=== PATIENT | female | born 2005 | race Caucasian/White ===

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

== ENCOUNTER 2025-01-06 07:08 | Outpatient (RCR) | payer BC, SELFPAY ==
--- NOTE | 2024-12-30 10:10 | BH.SGPN.GN ---
Behaviors/Verbalizations/Mental Status: [] Eye contact is good. Motor activity is appropriate. Appearance is casual. Speech is Appropriate. Mood is anxious and content. Affect is congruent. Thoughts are linear and logical. No evidence of psychosis. Client Response/Progress/Benefit: [] Pt was an active participant during group discussions and group activities. This portion of group was very psychoeducation heavy and pt was attentive during psychoeducation. Engaged during activity in which they identified which type of foods (i.e. carbs, sugar, salt, fast food, caffeine, etc) they seek out when sad, tired, angry, stressed, anxious, etc. Pt was able to identify the impact that certain foods have on their mental health through group example which was beneficial. Benefited from increased awareness of the connection between nutrition and mental health. Will continue in IOP to prevent decompensation, decrease anxiety, improve healthy coping, and improve self-confidence. Narrative Note: []
[2025-01-06 00:31] VITALS: BP 142/98; PULSE 110
--- NOTE | 2025-01-06 09:02 | BH.SGPN.GN ---
Behaviors/Verbalizations/Mental Status: [] Pt alert and oriented, casually dressed and groomed. Eye contact good. Motor activity appropriate. Speech within normal limits. Affect congruent, mood dysthymic. Thoughts linear, logical, no signs of hallucinations or delusions. Reviewed pt?s symptom tracker, no risk for suicidal ideation, plan, or intent 01/06/25. Client Response/Progress/Benefit: []Pt was an active participant in group discussions. Attentive. Able to identify mental health wins including putting her clothes away and making progress on selling her old car. 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 Pt is feeling calm? this morning. Pt receptive to feedback from peers which pt reported was helpful. Progress noted. Benefited from group support, encouragement, and feedback. Will continue IOP tx to promote use of healthy coping skills, increase assertive communication, and improve mood stability. Narrative Note: []
--- NOTE | 2025-01-06 10:10 | BH.SGPN.GN ---
Behaviors/Verbalizations/Mental Status: []Client alert and oriented, casually dressed and groomed. Eye contact good. Motor activity appropriate. Speech within normal limits. Affect congruent, mood content. Thoughts linear, logical, no signs of hallucinations or delusions. Client Response/Progress/Benefit: [] Pt responded well to session AEB sharing and listening attentively to others. Group provided examples of benefits of having social support, including: validation, get perspective, and accountability. Pt also participated in group discussion regarding the barriers to accessing support identifying examples to include: negative thinking, lack of communication, and lack of trust. Personal example identified as lack of communication, toxic people, and negative thoughts. Pt participated in experiential activity illustrating the impact communication, boundaries, and patience play in creating healthy support systems. Pt appeared to benefit from increased knowledge of the benefits of social support and greater self-awareness. Pt to continue IOP to prevent decompensation, improve daily functioning, and increase self-confidence. ?? Narrative Note: []
--- NOTE | 2025-01-06 11:10 | BH.SGPN.GN ---
Behaviors/Verbalizations/Mental Status: Client alert and oriented, casually dressed and groomed. Eye contact good. Motor activity appropriate. Speech within normal limits. Affect congruent, mood euthymic. Thoughts linear, logical, no signs of hallucinations or delusions. Client Response/Progress/Benefit: Pt participated throughout AEB contributing to discussion, providing examples, and taking notes. Pt provided input during discussion on the types of support our supports can provide. Pt able to identify current support system and barriers that get in the way of using supports. Pt reported after identifying what type of supports pt receives, pt gained awareness that pt could benefit from more social and tangible support. Pt reported she realizes her weakest support comes from her home situation, recognizes important to build additional supports outside her home environment. Pt seemed to benefit from identifying the type of support pt needs to work on improving. Pt recommended to continue IOP tx to increase confidence, challenge negative thoughts, and prevent decompensation.
--- NOTE | 2025-01-08 10:15 | BH.SGPN.GN ---
Behaviors/Verbalizations/Mental Status: []Pt alert and oriented, neatly dressed and groomed. Eye contact good. Motor activity appropriate. Speech within normal limits. Affect congruent, mood anxious. Thoughts linear, logical, no signs of hallucinations or delusions. Client Response/Progress/Benefit: [] Pt was an active participate AEB listening attentively to others and contributing during group discussions, participating in activity, and taking notes throughout. Attentive and provided input as the group identified ways we can hurt others or sabotage self by not regulating our emotions. Participated with peers to identify ways emotions impact communication. Provided an example of shutting down when anxious and not knowing what to say. Participated during group activity. Pt benefited from session by gaining an increased understanding on the importance of managing emotions to improve daily functioning. Will continue IOP tx to improve self-confidence, reduce negative self-talk, and improve daily functioning. Narrative Note: []
--- NOTE | 2025-01-08 11:15 | BH.SGPN.GN ---
Behaviors/Verbalizations/Mental Status: [] Client alert and oriented, casually dressed and groomed. Eye contact good. Motor activity appropriate. Speech within normal limits. Affect congruent, mood anxious and dysthymic. Thoughts linear, logical, no signs of hallucinations or delusions. Client Response/Progress/Benefit: [] Client engaged in session AEB client listening attentively to peers and providing input. Attentive during psychoeducation on 4 zones of regulation. Pt able to identify feelings and behaviors for each zone. Pt identified coping skills one can use to support self in each zone. Pt stated belief that pt is in the blue zone today. Pt reports plan to spend time drawing today. Benefited from increased education on zones of regulation or stages of alertness for emotions and healthy coping skills to use for each zone. Pt will continue IOP tx to increase self-awareness, improve communication skills, and prevent decompensation. Narrative Note: []
--- NOTE | 2025-01-09 09:05 | BH.SGPN.GN ---
Behaviors/Verbalizations/Mental Status: [] Eye contact is good. Motor activity is appropriate. Appearance is casual. Speech is Appropriate. Mood is anxious. Affect is congruent. Thoughts are linear and logical. No evidence of psychosis. Reviewed daily check in sheet and no reports of suicidal ideations or intent. Client Response/Progress/Benefit: [] Pt participated at times during the group discussions. Attentive. Daily symptom tracker notes 2/5 for depressed mood and /5 for anxiety. Able to identify mental health wins and healthy habits. Utilized support to benefit mental health by making an effort to spend time with her niece. She identified psychosocial stressors and reports periods of ?being hyper?, restless, and anxious for unknown reasons. Group worked with patient to identify possible triggers to increase anxiety. Progress noted. Benefited from group support, encouragement, and feedback. Will continue in IOP to prevent decompensation, increase healthy coping, and improve functioning Narrative Note: []
--- NOTE | 2025-01-09 10:10 | BH.SGPN.GN ---
Behaviors/Verbalizations/Mental Status: []Pt alert and oriented, neatly dressed and groomed. Eye contact good. Motor activity appropriate. Speech within normal limits. Affect congruent, mood euthymic. Thoughts linear, logical, no signs of hallucinations or delusions. Client Response/Progress/Benefit: [] Pt was an active participant in group discussion and experiential activity. Attentive during psychoeducation on resilience and provided input throughout. Participated in interactive discussion with peers on the definition of resilience and where it comes from. Group identified that resiliency can be impacted by; past experiences, upbringing, and personality traits. Group also worked together to identify the benefits of being resilient and how it is related to mental health. Able to relate experiential activity of group juggle to topics of resilience. Worked with peers in small group in which they identified factors that contribute to resilience. Benefited from increased awareness of resilience and the factors that contribute to building resilience. Will continue in IOP tx to prevent decompensation, improve self-confidence, and gain healthy coping skills. ? Narrative Note: []
--- NOTE | 2025-01-09 11:10 | BH.SGPN.GN ---
Behaviors/Verbalizations/Mental Status: []Pt alert and oriented, neatly dressed and groomed. Eye contact good. Motor activity appropriate. Speech within normal limits. Affect congruent, mood hyper. Thoughts linear, logical, no signs of hallucinations or delusions. Client Response/Progress/Benefit: [] Pt responded well to session AEB completing the resilience worksheet provided. Pt actively participated in the discussion and worked cooperatively with group to identify strategies to enhance each of the components discussed. Pt reports belief they already use resilience trait of ?self-care, keeping things in perspective, and moving towards goals.? Pt discussed that they want to work on making more healthy connections and setting more boundaries with toxic people. Pt seemed to benefit from discussing strategies for improving personal resilience and identifying resilience traits Pt already possesses. Will continue IOP tx to prevent decompensation, improve daily functioning, and increase self-confidence. Narrative Note: []
--- NOTE | 2025-01-13 09:00 | BH.SGPN.GN ---
Behaviors/Verbalizations/Mental Status: [] Pt alert and oriented, casually dressed and groomed. Eye contact good. Motor activity appropriate. Speech within normal limits. Affect congruent, mood dysthymic and anxious. Thoughts linear, logical, no signs of hallucinations or delusions. Reviewed pt?s symptom tracker, no risk for suicidal ideation, plan, or intent 01/13/25. Client Response/Progress/Benefit: []Pt was an active participant in group discussions. Attentive. Able to identify mental health wins including maintaining her self-care routine as well as completing small tasks around the house. Pt's stressor today is failing one of her college courses. Reports trying not to let it get to her however and remind herself she can try again. Pt is feeling embarrassed? this morning. Pt receptive to feedback from peers which pt reported was helpful. Progress noted. Benefited from group support, encouragement, and feedback. Will continue IOP tx to promote use of healthy coping skills, increase self-confidence, and improve mood stability. Narrative Note: []
--- NOTE | 2025-01-13 11:10 | BH.SGPN.GN ---
Behaviors/Verbalizations/Mental Status: []Pt alert and oriented, casually dressed and groomed. Eye contact good. Motor activity appropriate. Speech within normal limits. Affect congruent, mood anxious. Thoughts linear, logical, no signs of hallucinations or delusions. Client Response/Progress/Benefit: []Pt responded well to session, engaged and contributing. Pt worked on mental health wellness garden picture and discussed things that contribute to mental wellness life. With peers, pt discussed things that would sabotage one's mental health wellness and added it to the garden metaphor. Pt identified things pt personally does to sabotage as people pleasing and having overly rigid boundaries. Pt attentive during psychoeducation on ways to reduce self-sabotage and pt selected building self-worth as the skill that could help pt reduce self-sabotaging behaviors. Pt appeared to benefit from learning skills and gaining awareness of self-sabotaging behaviors. Pt will continue IOP tx to increase distress tolerance skills, promote boundary setting, and combat negative thinking. Narrative Note: []
--- NOTE | 2025-01-13 15:26 | BH.MDN ---
Multi-Disciplinary Note Note 30-min Individual: Time Started:: 10:34 Date: 01/13/25 Purpose of session/treatment goals addressed:: Purpose of session was to address recent stressor impacting pt progress and resulting in heightened sx of depression and anxiety. Eye Contact:: Good Motor Activity:: Appropriate Appearance:: Casual Speech:: Appropriate Mood:: Anxious Affect:: Congruent Thoughts:: Linear, Logical and No evidence of hallucinations/delusions noted Staff Interventions:: thought challenging, motivational interviewing, psychoeducation on: (maintenance cycles), CBT techniques and strengths perspective Client Response:: Pt responded well to session, engaged throughout. Described struggling the past week with worsening sx of depression and anxiety after receiving news she failed a college class for the second time in a row. Noted feelings of guilt, shame, and embarrassment as procrastination, rather than the course material, was the primary factor in pt failing the course. Described finding the material ?easy? and uninteresting led to putting the assignments off or not completing them. Pt stated that after learning of her failure, she began to struggle with thoughts of ?I?ll never be successful? and ?I?m not good at this so why even bother?. These were then reinforced by her parent?s expressing frustration criticism with her performance. Noted that her parents have been overwhelming her with various different career paths she could take, resulting in pt feeling overwhelmed and shutting down. Noted that she spent much of her time this week reading and sleeping to avoid having to current stressors. Connected with psychoeducation on maintenance cycles and provided insight into the impact avoidance has had on reinforcing her mental health sx, as well as preventing pt from getting her needs met and developing greater independence. Explained that she has put off setting a boundary with her parents regarding her need for more privacy as well. Acknowledges that avoiding communication prevents her needs from being met. Shared that she knows she would like to do something with art and is leaning toward art school but would like to explore commission work first; however, has avoided looking further into this as discussed in previous session out of lack of motivation. Pt connected with discussion on behavioral activation and use of opposite action and positive or self-compassionate self-talk to break unhealthy maintenance cycles. Identified goals to use daily affirmations, look into commission work, and discuss one boundary topic with her parents. Risks/Concerns:: Daily symptom tracker notes no suicidal ideations, plan, or intent. Progress Toward Goals/Plan:: Some regression per pt self-report. Noted worsening mood in the last week due to failing a college class as well as chronic interpersonal in her home life. Self-reports isolating and avoiding as a result. Noted shutting down and avoiding is her usual response to stress. Able to recognize the unhelpful impacts this coping mechanism has had on reinforcing anxiety and preventing pt from building confidence and independence. Recommended continued IOP tx to improve self-efficacy and independence, improve mood stability, and prevent decompensation Time Stopped:: 12:05
--- NOTE | 2025-01-15 09:00 | BH.SGPN.GN ---
Behaviors/Verbalizations/Mental Status: [] Client alert and oriented, casual appearance. Eye contact good. Motor activity appropriate. Speech within normal limits. Affect congruent, mood anxious and euthymic. Thoughts linear, logical, no signs of hallucinations or delusions. Reviewed client's symptom tracker, no risk for suicidal ideation, plan, or intent. Client Response/Progress/Benefit: [] Client responded well to session AEB listening to others and sharing thoughts/feelings. Client reported mental health positive as having crucial conversation with her parents about asking them to knock on her door before entering. Client stated her parents did not respond well to her crucial conversation about wanting more privacy because they said until she pays rent or moves out they can do what they want. Client reported although the crucial conversation didn't go well she is proud of herself for standing up for herself. Client reported current stressor as parents not respecting her boundaries. Appeared to benefit from support from peers. Will continue IOP tx to increase confidence, continue setting boundaries, and prevent decompensation.
--- NOTE | 2025-01-15 10:15 | BH.SGPN.GN ---
Behaviors/Verbalizations/Mental Status: [] Eye contact is good. Motor activity is appropriate. Appearance is casual. Speech is Appropriate. Mood is anxious. Affect is congruent. Thoughts are linear and logical. No evidence of psychosis. Client Response/Progress/Benefit: [] Pt responded well to session AEB actively participating throughout group. Pt was attentive throughout group activity discussing famous individuals and how they overcame failure to be successful. Pt helped group define fear of failure as well as how it can impact mental health and relationships. Participated in experiential activity and worked with group members to problem solve. Appeared to benefit from increased knowledge of what causes fear of failure and how it impacts people. Will continue IOP tx to prevent decompensation,improve daily functioning and learn healthy coping skills. Narrative Note: []
--- NOTE | 2025-01-15 11:15 | BH.SGPN.GN ---
Behaviors/Verbalizations/Mental Status: []Pt alert and oriented, neatly dressed and groomed. Eye contact good. Motor activity appropriate. Speech within normal limits. Affect congruent, mood euthymic. Thoughts linear, logical, no signs of hallucinations or delusions. Client Response/Progress/Benefit: [] Pt responded well to session, engaged in the experiential activity and attentive throughout group processing. Interactive discussion with peers on what FOF has kept them from which included; being authentic and doing what she wants. Pt completed fear of failure worksheet and was able to identify thoughts and behaviors that reinforce personal fear of failure. Pt participated in small group discussion regarding strategies to overcome fear of failure. Identified struggling most with feeling like a burden and negative self-talk.? Pt will work on these by practicing ?thinking in the irene and challenging personalizing.? Appeared to benefit from increased knowledge of strategies to combat fear of failure and gaining self-awareness. Pt will continue IOP tx to promote mood stability, increase distress tolerance skills, and improve self-confidence. Narrative Note: []
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
--- NOTE | 2025-01-16 09:00 | BH.SGPN.GN ---
Behaviors/Verbalizations/Mental Status: [] Eye contact is good. Motor activity is appropriate. Appearance is casual. Speech is Appropriate. Mood is anxious. Affect is congruent. Thoughts are linear and logical. No evidence of psychosis. Reviewed daily check in sheet and no reports of suicidal ideations or intent. Client Response/Progress/Benefit: [] Pt participated at times during the group discussions. Attentive. Daily symptom tracker notes 5 for anxiety and /5 for depression. Able to identify mental health wins and healthy habits. She attempted to set boundaries with her parents last week and her perception at the time was that it was not helpful, however today she noticed that her parents had actually responded partially to her boundary request. ? I felt listened too?. She continues to struggle with finding her place in the world and is attending a career exploration class. 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 This has impacted her confidence and self-esteem. Progress is noted as she is beginning to be assertive in her communication. Benefited from group support, encouragement, and feedback. Will continue in IOP to prevent decompensation, increase healthy coping, and improve functioning. Narrative Note: []
--- NOTE | 2025-01-16 10:05 | BH.SGPN.GN ---
Behaviors/Verbalizations/Mental Status: [] Client alert and oriented, casually dressed and groomed. Eye contact good. Motor activity appropriate. Speech within normal limits. Affect congruent, mood euthymic. Thoughts linear, logical, no signs of hallucinations or delusions. Client Response/Progress/Benefit: [] Client responded well to session AEB contributing to discussion, taking notes, and listening attentively to others. Group discussed the benefits of managed anger and anger as a secondary emotion. Client participated in anger iceberg discussion. Group reported outward personal signs of anger as shutting down, isolating, and yelling. Group Identified underlying emotions that contribute to anger including family, daily stress, disappointment, and trauma. Appeared to benefit from increased knowledge of the underlying emotions that impact anger and increased self-awareness of the internal and external consequences of anger. Client will continue IOP program to increase functioning and minimize anxious thought processes. Narrative Note: []
--- NOTE | 2025-01-16 11:10 | BH.SGPN.GN ---
Behaviors/Verbalizations/Mental Status: [] client alert and oriented, neatly dressed and groomed. Eye contact good. Motor activity appropriate. Speech within normal limits. Affect congruent, mood euthymic. Thoughts linear, logical, no signs of hallucinations or delusions. Client Response/Progress/Benefit: [] Client was an engaged participant throughout group AEB client providing input throughout discussion. Client contributed to the continued discussion of how people express anger as well as the underlying emotions of anger. Client participated in group activity that highlighted strategies to cope with anger. Group brainstormed healthy coping skills to help prevent anger and cope with it in the moment which included: mindfulness, deep breathing, journaling, going outside, and music. Client identified skills to implement to help with anger as setting boundaries to prevent anger and deep breathing to help manage anger in the moment. Client appeared to benefit from brainstorming with the group potential strategies to manage anger in healthy ways. Recommended continued IOP to increase functioning and prevent decompensation. Narrative Note: []
--- NOTE | 2025-01-19 09:05 | BH.SGPN.GN ---
Behaviors/Verbalizations/Mental Status: [] Eye contact is good. Motor activity is appropriate. Appearance is casual. Speech is Appropriate. Mood is depressed and anxious. Affect is congruent. Thoughts are linear and logical. No evidence of psychosis. Reviewed daily check in sheet and no imminent reports of suicidal ideations or intent. Client Response/Progress/Benefit: [] Pt participated at times during the group discussions. Attentive. Very brief and superficial check-in today. I didn't feel as depressed this weekend. She described a couple of events which in the past would have caused depressive symptoms. Reframing her people-pleasing throughs and practicing boundary setting which she believes has positively impacted her independence as well as self-confidence. Challenging myths about self-care and not doing things. She is significant;y anxious about seeking a PT job. In the past she has struggled to follow instructions at previous jobs and is worried she will fail. Progress noted. Benefited from group support, encouragment, and feedback. Will continue in IOP to prevent decompensation, increase healthy coping, and improve functioning. Narrative Note: []
--- NOTE | 2025-01-19 10:00 | BH.SGPN.GN ---
Behaviors/Verbalizations/Mental Status: [] Client alert and oriented, casually dressed and groomed. Eye contact good. Motor activity appropriate. Speech within normal limits. Affect congruent, mood anxious, euthymic. Thoughts linear, logical, no signs of hallucinations or delusions. Client Response/Progress/Benefit: [] Pt engaged in session AEB client listening attentively to peers and providing input. Attentive and contributed to discussion as group worked on defining self-confidence and identifying benefits of self-confidence, as well as factors that can effect self-confidence levels. Pt was an active participant in activity in which the group read and processed each right on the Personal Bill of Rights worksheet. Pt identified the rights they struggle with believing as ?I have the right to change my mind? and ?I have the right to be angry at someone I love?. Benefited from increased education on self-confidence and what effects it. Pt will continue IOP tx to increase self-confidence, improve emotional regulation skills, and prevent decompensation. Narrative Note: []
--- NOTE | 2025-01-19 11:10 | BH.SGPN.GN ---
Behaviors/Verbalizations/Mental Status: [] Client alert and oriented, casually dressed and groomed. Eye contact good. Motor activity appropriate. Speech within normal limits. Affect congruent, mood euthymic. Thoughts linear, logical, no signs of hallucinations or delusions. Client Response/Progress/Benefit: [] Pt engaged in session AEB client listening attentively to peers and providing input. Attentive and contributed to discussion as group worked on identifying thought patterns and behaviors that negatively effect self-confidence. Pt identified that that people pleasing and poor boundaries. Engaged in confidence building activity and worked with the group to identify strategies for improving self-confidence. Pt identified plans to begin using daily morning affirmations as a means of improving own self-confidence. Benefited from increased education on self-confidence building skills. Pt will continue IOP tx to increase self-confidence, improve emotional regulation skills, and prevent decompensation. Narrative Note: []
--- NOTE | 2025-01-22 09:05 | BH.SGPN.GN ---
Behaviors/Verbalizations/Mental Status: [] Eye contact is good. Motor activity is appropriate. Appearance is casual. Speech is Appropriate. Mood is anxious. Affect is congruent. Thoughts are linear and logical. No evidence of psychosis. Reviewed daily check in sheet and no reports of suicidal ideations or intent. Client Response/Progress/Benefit: [] Pt was an active participant in group discussions. Attentive. Daily symptom tracker notes 11/12 for anxiety. Pt talked at length regarding stressors at home with her parents.???Yesterday was rough? Elaborated on how these stressors are impacting her mental health. Tearful at times. She reports feeling like a ? therapist? for her parents. Concerned for the future of her family. Limited progress noted. Benefited from group support, encouragement, and feedback. Will continue in IOP to prevent decompensation, increase healthy coping, and provide support. Narrative Note: []
--- NOTE | 2025-01-22 10:10 | BH.SGPN.GN ---
Behaviors/Verbalizations/Mental Status: [] Client alert and oriented, casually dressed and groomed. Eye contact good. Motor activity appropriate. Speech within normal limits. Affect congruent, mood euthymic. Thoughts linear, logical, no signs of hallucinations or delusions Client Response/Progress/Benefit: [] Client was an active participant, AEB taking notes and providing input in group discussions and activities. Attentive during psychoeducation. Client engaged during interactive discussion in which the group defined self-care and discussed its benefits. Group discussed barriers to engaging in self-care. Client identified personal barrier of over using some self care and ignoring it in other areas. Client participated in small groups where they worked to identify common self-care ?myths?. Benefited from increased awareness of self-care, its benefits, and the consequences of not utilizing self-care strategies. Will continue IOP tx to prevent decompensation and increase overall functioning. Narrative Note: []
--- NOTE | 2025-01-22 11:10 | BH.SGPN.GN ---
Behaviors/Verbalizations/Mental Status: [] Client alert and oriented, neatly dressed and groomed. Eye contact good. Motor activity appropriate. Speech within normal limits. Affect congruent, mood euthymic. Thoughts linear, logical, no signs of hallucinations or delusions. Client Response/Progress/Benefit: []Client engaged participant AEB completing self-assessment worksheet and providing input throughout discussion. Client completed worksheet identifying current self-care practices and what self-care activities client wants to start using. Client selected professional self-care to begin practicing more consistently. Client plans to do this by setting more boundaries with her dad since he is also her boss. Appeared to benefit from completing the self-care evaluation and gaining insights into current self-care practices, as well as identifying areas in which client would like to improve upon. Client will continue IOP tx to prevent decompensation, increase emotional regulation skills, and gain healthier thought patterns. Narrative Note: []
--- NOTE | 2025-01-23 09:00 | BH.SGPN.GN ---
Behaviors/Verbalizations/Mental Status: [] Eye contact is good. Motor activity is appropriate. Appearance is casual. Speech is Appropriate. Mood is depressed. Affect is congruent. Thoughts are linear and logical. No evidence of psychosis. Reviewed daily check in sheet and no reports of suicidal ideations or intent. Client Response/Progress/Benefit: [] Pt was an active participant in group discussion. Attentive. She talked at length regarding continued stressors at home and how they impact her mental health. Tearful at times. ? I feel like I have to choose sides?. She is working hard to utilize coping strategies, set boundaries, and communicate assertively with family. She also has insight that her parents problems are not her responsibility to solve. Despite the external stressors she is able to incorporate healthy coping. Progress noted. Beneifted from group support, encouragement, and feedback. She is set to discharge successfully from [facility] today. Narrative Note: []
--- NOTE | 2025-01-23 09:00 | BH.SGPN.GN ---
Behaviors/Verbalizations/Mental Status: [] Eye contact is good. Motor activity is appropriate. Appearance is casual. Speech is Appropriate. Mood is depressed. Affect is congruent. Thoughts are linear and logical. No evidence of psychosis. Reviewed daily check in sheet and no reports of suicidal ideations or intent. Client Response/Progress/Benefit: [] Pt was an active participant in group discussion. Attentive. She talked at length regarding continued stressors at home and how they impact her mental health. Tearful at times. ? I feel like I have to choose sides?. She is working hard to utilize coping strategies, set boundaries, and communicate assertively with family. She also has insight that her parents problems are not her responsibility to solve. Despite the external stressors she is able to incorporate healthy coping. Progress noted. Beneifted from group support, encouragement, and feedback. She is set to discharge successfully from [facility] today. Narrative Note: []
--- NOTE | 2025-01-23 10:15 | BH.SGPN.GN ---
Behaviors/Verbalizations/Mental Status: [] Client alert and oriented, casually dressed and groomed. Eye contact good. Motor activity appropriate. Speech within normal limits. Affect congruent, mood euthymic. Thoughts linear, logical, no signs of hallucinations or delusions. Client Response/Progress/Benefit: [] Pt engaged in session AEB client listening attentively to peers and providing input. Attentive and contributed to discussion as group worked on defining self-forgiveness and identifying mental health benefit. Identified benefits as: reduce guilt/shame, increase self-confidence, decrease negative self-talk, healthier relationships, ect. ?Worked in small groups to identify factors that can make self-forgiveness difficult. Pt identified a personal barrier to self-forgiveness as embarrassment and difficulties communicating. Benefited from increased education on self-forgiveness, benefits, and what effects it. Pt will continue outpatient tx as she is d/c from IOP to increase self-compassion, improve emotional regulation skills, and prevent decompensation. Narrative Note: []
--- NOTE | 2025-01-23 11:15 | BH.SGPN.GN ---
Behaviors/Verbalizations/Mental Status: [] Client alert and oriented, casually dressed and groomed. Eye contact good. Motor activity appropriate. Speech within normal limits. Affect congruent, mood euthymic. Thoughts linear, logical, no signs of hallucinations or delusions. Client Response/Progress/Benefit: [] Pt engaged in session AEB client listening attentively to peers and providing input. Attentive during psychoeducation on the 4 R?s of Self-Forgiveness (Responsibility, Remorse, Adventism, Renewal). Contributed to discussion as group worked on identifying strategies for improving ability to practice self-forgiveness. Reports wanting to practice thought challenging and positive affirmations. Engaged in self-forgiveness activity and benefited from increased education on self-forgiveness building skills. Pt will continue outpatient tx to maintain gains and prevent decompensation. Narrative Note: []
== END 2025-01-23 12:28 | disposition home or self-care (01) ==
LOC: BHIOP 07:08
PROVIDERS: PCP Pediatrics; Referring Provider Psychiatry & Neurology Psychiatry; Visit Provider Psychiatry & Neurology Psychiatry
DX: F33.1 Major depressive disorder, recurrent, moderate (principal); F41.1 Generalized anxiety disorder; F90.9 Attention-deficit hyperactivity disorder, unspecified type; R48.0 Dyslexia and alexia
CPT/HCPCS: S9480; 90832; 90853

== ENCOUNTER → 2025-01-27 | Outpatient (CLI) | payer BC, SELFPAY ==
--- NOTE | 2025-01-27 13:05 | US_ITS ---
PROCEDURE: BREAST LIMITED UNILATERAL 01/27/2025 REASON FOR EXAM: NIPPLE DISCHARGE TECHNIQUE: Targeted right breast ultrasound. COMPARISON: None FINDINGS: Right breast ultrasound was targeted to the retroareolar region.. The breast tissue appears sonographically normal. Dilated prominent retroareolar ducts. US/Breast Limited Unilateral IMPRESSION: Dilated prominent retroareolar ducts. Follow-up code: Routine Follow-up BI-RADS category 2 Reading Location: [facility]
== END | disposition home or self-care (01) ==
PROVIDERS: PCP Pediatrics; Referring Provider Nurse Practitioner Family; Visit Provider Nurse Practitioner Family
DX: N64.52 Nipple discharge (principal)
CPT/HCPCS: 76642

== ENCOUNTER → 2025-01-31 | Outpatient (CLI) | payer BC, SELFPAY ==
[2025-01-31 11:19] LABS: Follicle Stimulating Hormone 3.2 mIU/mL; Free T3 3.1 pg/mL (2.18-3.98); Luteinizing Hormone 16.8 mIU/mL
[2025-02-01 06:38] LABS: PROLACTIN 8.2 ng/mL (4.8-33.4)
== END | disposition home or self-care (01) ==
LOC: LAB 10:00
PROVIDERS: PCP Pediatrics; Referring Provider Nurse Practitioner Family; Visit Provider Nurse Practitioner Family
DX: N64.52 Nipple discharge (principal)
CPT/HCPCS: 36415; 83001; 83002; 84146; 84439; 84443; 84481

== ENCOUNTER 2025-02-05 12:23 | Outpatient (RCR) | payer BC, SELFPAY ==
--- NOTE | 2025-02-05 12:53 | BH.MTP ---
Master Treatment Plan Patient Information Program Physician:: Dr. Yamileth Lopez Primary Therapist:: STORM Burch Psychiatric Diagnoses Psychiatric Diagnoses:: 1. Major depressive disorder, recurrent, mild 2. Generalized anxiety disorder 3. ADHD 4. Dyslexia Diagnosis Code(s):: F33.1 Estimated LOS Estimated LOS (in weeks):: 8 Problem/Goal #1 Problem/Goal #1 Stated Goal:: client will maintain or see a reduction in symptoms AEB client score on the DSM 5 cross-cutting measure and improve client's daily functioning. Objectives Objective #1: Stated Objective: Client will continue to consistently apply healthy coping skills to maintain progress made in IOP tx. Interventions: Through group therapy, client will review warning signs and triggers as well as healthy coping skills learned in IOP tx to successfully maintain gains while transitioning into outpatient therapy. Discharge Criteria: Client will have accomplished this goal when client's score on the DSM-5 cross-cutting measure has maintained or reduced over a 8 week period. Target Date: 03/26/25 Review Date: 02/26/25 Objective #2: Stated Objective: Client will learn and utilize 2-3 maintenance strategies to prevent decompensation from original IOP DSM-5 scores. Interventions: Through group therapy, client will be provided with education on healthy maintenance behaviors, relapse prevention techniques, and healthy coping strategies. Discharge Criteria: Client will have accomplished this goal when can report using at least 2 maintenance skills to prevent decompensation compared to original IOP DSM-5 scores Target Date: 03/26/25 Review Date: 02/26/25
--- NOTE | 2025-02-05 14:00 | BH.COMM ---
Communication Note Communication with Client Communication Note: Patient completed IOP and presents today to start relapse prevention group which meets once weekly (1.5 hours) for 8 weeks. Case discussed with Dr. Lopez with plan to admit with dx of F33.0 and f41.1
--- NOTE | 2025-02-12 14:00 | BH.SGPN.GN ---
Behaviors/Verbalizations/Mental Status: []Pt alert and oriented, neatly dressed and groomed. Eye contact good. Motor activity appropriate. Speech within normal limits. Affect congruent, mood euthymic. Thoughts linear, logical, no signs of hallucinations or delusions. Client Response/Progress/Benefit: [] Pt took notes and contributed to group discussions. Pt reports she did not see her therapist this week and taking medications consistently. Pt identified coping skills she has been using which included: DDD, deep breathing, affirmations, socializing, and reframing negative thoughts.. Pt engaged in discussion on habits and how they are formed. Pt gave examples of how to build healthy habits and reported benefitting from habit stacking. Pt shared she wants to work on building the habit of eating breakfast when she takes her morning medications. Pt appeared to benefit from learning about building healthy habits and setting a habit goal. Will continue IOP aftercare to reinforce healthy coping skills and promote gains. ? Narrative Note: []
--- NOTE | 2025-02-19 12:59 | BH.MTP_ITS ---
Treatment Plan Review Demographics Date of Admission:: 02/05/25 Date of Treatment Plan Review:: 02/19/25 Admitting Diagnoses:: 1. Major depressive disorder, recurrent, mild 2. Generalized anxiety disorder 3. ADHD 4. Dyslexia Current Diagnoses:: 1. Major depressive disorder, recurrent, mild 2. Generalized anxiety disorder 3. ADHD 4. Dyslexia Patient Status Patient's Response to Treatment:: Pt continues to respond well to treatment AEB pt's consistent attendance, ongoing attentiveness and engagement in group discussions, and continued reporting use of skills outside treatment env ironment. Pt's symptoms are still 24% lower than they were at IOP admission. Status of Current Problems and Symptoms: Pt reports ongoing anxiety and depressive symptoms that have decreased in intensity, but are still present. Pt has been experiencing increased stress with her parent?s relationship issues and this worsened pt's mental health symptoms, leading to irritability and anxiety. Pt reports she is beginning to feel better, but she still has days she struggles. Progress Problem #1: Problem Name:: Pt will maintain or see a reduction in sx Status of Goals:: Obj 1 - Complete with maintenance encouraged. Pt's depression decreased by 33% compared to IOP admission and anxiety has decreased by 67% compared to IOP admission. Obj 2 - complete with ongoing work encouraged. Pt has been reporting using opposite action, self-compassion, advocating for her needs, and deep breathing. Pt is also working on being more social and is planning to begin career seeking. Team Recommendations:: Recommended client continue IOP aftercare group in addition to attending regular outpatient counseling in order to maintain gains. Pt also recommended to continue working on self-advocacy, practice self-care, and setting realistic goals.
== END 2025-03-07 23:59 ==
LOC: BHOG 12:23
PROVIDERS: PCP Pediatrics; Referring Provider Psychiatry & Neurology Psychiatry; Visit Provider Psychiatry & Neurology Psychiatry
DX: F33.0 Major depressive disorder, recurrent, mild (principal); F41.1 Generalized anxiety disorder; F90.9 Attention-deficit hyperactivity disorder, unspecified type; R48.0 Dyslexia and alexia
CPT/HCPCS: 90853

== ENCOUNTER 2025-03-09 07:26 | Outpatient (RCR) | payer BC, SELFPAY ==
--- NOTE | 2025-03-05 15:35 | BH.SGPN.GN ---
Behaviors/Verbalizations/Mental Status: []Client alert and oriented, casually dressed and groomed. Eye contact good. Motor activity appropriate. Speech within normal limits. Affect congruent, mood euthymic and stressed. Thoughts linear, logical, no signs of hallucinations or delusions. Client Response/Progress/Benefit: []Pt responded well to session AEB sharing and listening attentively to others. Pt reports following up with therapy and pt reports she is taking her medications consistently. Pt stated using opposite action, DDD, reframing, and PMR as primary coping skills used this past week. Pt participated in group discussion defining vulnerability, how and why we avoid it, and the benefits. Pt was an active participant and provided personal examples of being vulnerable and the positive things that came with this. Pt stated that pt would like to work on being vulnerable this week by challenging herself to learn a skill that she has not tried before to practice not being perfect at something. Will continue aftercare treatment to reinforce healthy coping skills and promote gains. Narrative Note: []
--- NOTE | 2025-03-19 13:24 | BH.DS ---
Discharge Summary Demographics Date of Admission:: 02/05/25 Discharge Date: 03/19/25 Presenting Problems at Admission:: At aftercare admission pt reporting significant improvement in daily functioning and decrease in anxiety and depression. Client could benefit from aftercare program to help with maintenance of skills and progress. 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 Discharge Diagnoses:: 1. Major depressive disorder, recurrent, mild 2. Generalized anxiety disorder 3. ADHD 4. Dyslexia Patient Sta Reason for Discharge:: Pt has accomplished tx goals AEB ability to maintain mood stability and gains made in IOP. Pt's DSM-5 scores remain 62% lower than her IOP admission scores. Pt will transition to traditional outpatient counseling. Treatment Progress During Treatment & Response: Pt responded well and made progress in IOP aftercare as evidenced by pt's participation in group discussions and self-report of consistently applying coping skills. Pt's overall DSM-5 scores decreased by 62% from IOP admission. Pt’s depression decreased by 67% since original IOP admission and pt's scores for anxiety decreased by 56% compared to original IOP scores. Issues Still to be Addressed:: Client could benefit from continued reinforcement of healthy coping skills, reinforcement of maintenance plan, and continued work on boundary setting. Recommended family therapy to address issues within the relationship with her parents. Discharge Recommendations/Instructions:: Client is established with an outpatient counselor, Cassie Patten, and psychiatry adult physician, Maritza Law, from [facility]. Discharge Handout
== END 2025-03-20 07:08 | disposition home or self-care (01) ==
LOC: BHOG 07:26
PROVIDERS: PCP Pediatrics; Referring Provider Psychiatry & Neurology Psychiatry; Visit Provider Psychiatry & Neurology Psychiatry
DX: F33.0 Major depressive disorder, recurrent, mild (principal); F41.1 Generalized anxiety disorder; F90.9 Attention-deficit hyperactivity disorder, unspecified type; R48.0 Dyslexia and alexia
CPT/HCPCS: 90853

== ENCOUNTER → 2025-05-25 | Outpatient (CLI) | payer BC, SELFPAY ==
[2025-05-27 10:08] LABS: PROLACTIN 12.5 ng/mL (4.8-33.4); Thyroglobulin, Serum Qt. 12.5 ng/mL (1.5-38.5)
== END | disposition home or self-care (01) ==
LOC: LAB 11:35
PROVIDERS: PCP Pediatrics
DX: N64.3 Galactorrhea not associated with childbirth (principal); R79.89 Other specified abnormal findings of blood chemistry; R53.83 Other fatigue; Z83.3 Family history of diabetes mellitus
CPT/HCPCS: 36415; 83036; 84146; 84432; 84439; 84443; 86800